=== PATIENT | male | born 1980 | race African-American/Black ===

== ENCOUNTER 2017-07-06 23:53 | Emergency (ER) | payer OTHER, MEDICAID ==
[2017-07-07 00:13] VITALS: BP 186/97; BMI 44.3
--- NOTE | 2017-07-07 00:33 | DR.GENAD ---
HPI - PCP Primary Care Physician: NANO - Complaint/Symptoms Chief Complaint Doctors Comments: Patient admits to intermittent fever for three days. He denies vomiting or diarrhea. He has no history of cardiopulmonary disease Chief Complaint:: FEVER X 3 DAYS Self Treatment fo Chief Complaint: TYLENOL - Mode of Arrival Mode of Arrival: Ambulatory - Timing Onset of Chief Complaint: 07/04/17 PMH - PMH Past Medical History: Yes Past Medical History: Diabetes, Hypertension Past Surgical History: No - Family History History of Family Medical Conditions: Yes Family Medical History: Diabetes Mellitus, Hypertension Family Medical History Comment: FATHER - Social History Does patient currently use any type of tobacco product: No Have you used tobacco products in the last 12 months: No Type of Tobacco Use: None Does any household member use tobacco: No Alcohol Use: None Do you use any recreational Drugs:: No Lives With: Family Lives Where: Home - infectious screening In the last 2 months have you had wt loss of >10#?: NO Have you had fever, night sweats or hemotysis?: No Have you traveled outside the country in the last 6 months?: No Isolation: Standard ROS - Review of Systems Eyes: No Symptoms Reported ENTM: No Symptoms Reported Respiratoy: No Symptoms Reported Cardiovascular: No Symptoms Reported Gastrointestinal/Abdominal: No Symptoms Reported Genitourinary: No Symptoms Reported Neurological: No Symptoms Reported Musculoskeletal: No Symptoms Reported Integumentary: No Symptoms Reported Hematologic/Lymphatic: No Symptoms Reported Endocrine: No Symptoms Reported Psychiatric: No Symptoms Reported All Other Systems: Reviewed and Negative PE - Vital Signs Vitals: Temperature 99.6 F Pulse Rate 82 Respiratory Rate 16 Blood Pressure 186/97 O2 Sat by Pulse Oximetry 97 - General Limitations: No Limitations General Appearance: Alert, In No Apparent Distress - Head Head Exam: Normal Inspection, Atraumatic - Eyes Eye exam: Normal Appearance, PERRL, EOMI - ENT ENT Exam: Normal Exam External Ear Exam: Normal External Inspection TM/Canal Exam: Bilateral Normal Nose Exam: Normal Nose Exam Mouth Exam: Normal Inspection Throat Exam: Normal Inspection - Neck Neck Exam: Normal Inspection, Full ROM - Chest Chest Inspection: Normal Inspection - Respiratory Respiratory Exam: Normal Lung Sounds Bilat Respiratory Exam: Bilateral Clear to Auscultation - Cardiovascular Cardiovascular Exam: Regular Rate, Normal Rhythm - Abdominal Exam Abdominal Exam: Normal Inspection, Normal Bowel Sounds Abdominal Tenderness: negative: RUQ, RLQ, LUQ, LLQ, Epigastrium, Suprapubic, Diffuse, Mild, Moderate, Severe, Other - Extremities Extremities Exam: Normal Inspection, Full ROM - Back Back Exam: Normal Inspection, Full ROM - Neurologic Neurological Exam: Alert, Oriented X3, CN II-XII Intact - Psychiatric Psychiatric Exam: Normal Affect - Skin Skin Exam: Warm, Dry, Intact ROR - Labs Reviewed Laboratory Results Reviewed?: Yes (potassium low, positive strep) Result Diagrams: 07/07/17 00:43 07/07/17 00:43 Laboratory: WBC 5.6 X10^3/uL (3.6-10.0) 07/07/17 00:43 RBC 4.58 X10^6/uL (4.7-6.0) L 07/07/17 00:43 Hgb 12.9 g/dL (13.5-18.0) L 07/07/17 00:43 Hct 37.3 % (42.0-54.0) L 07/07/17 00:43 MCV 81.5 fL (80.0-100.0) 07/07/17 00:43 MCH 28.2 pg (27.0-34.0) 07/07/17 00:43 MCHC 34.6 g/dL (33.0-35.0) 07/07/17 00:43 RDW 12.7 % (11.6-16.5) 07/07/17 00:43 Plt Count 170 X10^3/uL (150.0-450.0) 07/07/17 00:43 MPV 7.7 fL (7.4-11.0) 07/07/17 00:43 Neut % 62.2 % (42.0-75.0) 07/07/17 00:43 Lymph % 26.4 % (21.0-51.0) 07/07/17 00:43 [place] % 9.6 % (0.0-13.0) 07/07/17 00:43 Eos % 1.2 % (0.9-2.9) 07/07/17 00:43 Baso % 0.6 % (0.2-1.0) 07/07/17 00:43 Neut # 3.5 x10^3/uL (2.2-4.8) 07/07/17 00:43 Lymph # 1.5 X10^3/uL (1.3-2.9) 07/07/17 00:43 [place] # 0.5 x10^3/uL (0.3-0.8) 07/07/17 00:43 Eos # 0.1 x10^3/uL (0.0-0.2) 07/07/17 00:43 Baso # 0.0 X10^3/uL (0.0-0.1) 07/07/17 00:43 Absolute Nucleated RBC 0.0 /100WBC 07/07/17 00:43 Sodium 138 mmol/L (136-145) 07/07/17 00:43 Corrected Sodium 142 mmol/L (136-145) 07/07/17 00:43 Potassium 3.3 mmol/L (3.5-5.1) L 07/07/17 00:43 Chloride 100 mmol/L (98-107) 07/07/17 00:43 Carbon Dioxide 30.3 mmol/L (21-32) 07/07/17 00:43 BUN 11 mg/dL (7-18) 07/07/17 00:43 Creatinine 1.35 mg/dL (0.70-1.30) H 07/07/17 00:43 Est GFR (MDRD) Af Amer > 60 (>60) 07/07/17 00:43 Est GFR (MDRD) Non-Af > 60 (>60) 07/07/17 00:43 Glucose 266 mg/dL (65-99) H 07/07/17 00:43 Calcium 8.5 mg/dL (8.5-10.1) 07/07/17 00:43 Streptococcus Screen Positive (NEGATIVE) A 07/07/17 00:43 - Diagnosis Discharge Problem: Hypokalemia, Strep pharyngitis - Discharge Plan Condition: Stable - Follow ups/Referrals Follow ups/Referrals: Jorge Saenz [Primary Care Provider] - 3 days - Instructions
[2017-07-07 00:57] LABS: BASOPHILS % (AUTO) 0.6 % (0.2-1.0); EOSINOPHILS # (AUTO) 0.1 x10^3/uL (0.0-0.2); EOSINOPHILS % (AUTO) 1.2 % (0.9-2.9); HEMATOCRIT 37.3 % (42.0-54.0); HEMOGLOBIN 12.9 g/dL (13.5-18.0); LYMPHOCYTES # (AUTO) 1.5 X10^3/uL (1.3-2.9); LYMPHOCYTES % (AUTO) 26.4 % (21.0-51.0); MEAN CORPUSCULAR HEMOGLOBIN 28.2 pg (27.0-34.0); MEAN CORPUSCULAR HGB CONC 34.6 g/dL (33.0-35.0); MEAN CORPUSCULAR VOLUME 81.5 fL (80.0-100.0); MEAN PLATELET VOLUME 7.7 fL (7.4-11.0); MONOCYTES # (AUTO) 0.5 x10^3/uL (0.3-0.8); MONOCYTES % (AUTO) 9.6 % (0.0-13.0); NEUTROPHILS # (AUTO) 3.5 x10^3/uL (2.2-4.8); NEUTROPHILS % (AUTO) 62.2 % (42.0-75.0); PLATELET COUNT 170 X10^3/uL (150.0-450.0); RED BLOOD COUNT 4.58 X10^6/uL (4.7-6.0); RED CELL DISTRIBUTION WIDTH 12.7 % (11.6-16.5); WHITE BLOOD COUNT 5.6 X10^3/uL (3.6-10.0)
[2017-07-07 00:59] LABS: BLOOD UREA NITROGEN 11 mg/dL (7-18); CALCIUM 8.5 mg/dL (8.5-10.1); CARBON DIOXIDE 30.3 mmol/L (21-32); CHLORIDE 100 mmol/L (98-107); COR NA(FOR HYPERGLY) 142 mmol/L (136-145); CREATININE 1.35 mg/dL (0.70-1.30); SODIUM 138 mmol/L (136-145); eGFR BLACK RACES > 60 (>60); eGFR NON BLACK RACES > 60 (>60)
[2017-07-07] MEDS ORDERED: K-DUR TAB 20 MEQ PO ONE ×2 (01:02→02:00)
[2017-07-07] MEDS ORDERED: BICILLIN L-A IM ONE ×2 (01:36→01:41)
== END 2017-07-07 02:08 | disposition home or self-care (01) ==
LOC: ER 23:53
DX: J02.0 Streptococcal pharyngitis (principal); E87.6 Hypokalemia
CPT/HCPCS: 36415; 80048; 85025; 87880; 96372; 99282; J0570

== ENCOUNTER 2017-07-08 21:29 | Emergency (ER) | payer OTHER, MEDICAID ==
[2017-07-08 21:52] VITALS: BP 149/80; BMI 44.3
[2017-07-08] MEDS ORDERED: DECADRON INJ IM ONE (23:01)
[2017-07-08] MEDS ORDERED: TORADOL 60 MG VIAL IM ONE (23:01)
[2017-07-08] MEDS ORDERED: TYLENOL 500 MG TAB EXTRA STRENGTH PO ONE ×2 (23:03→23:11)
--- NOTE | 2017-07-08 23:05 | DR.GENAD ---
HPI - PCP Primary Care Physician: NFD - HPI Comment HPI Comment: NOT CURRENTLY ON MEDICATION FOR STILLS DISEASE. - Complaint/Symptoms Chief Complaint Doctors Comments: FEVER, BODYACHES, WEAKNESS AND GENERALIZE JOINT PAIN. HAVE HISTORY OF ADULT STILL DISEASE AND RUN HIGH FEVER ALL THE TIME. TAKING MED FOR FEVER WITHOUT IMPROVEMENT. Chief Complaint:: PT STATES, "I'VE GOT A FEVER. HAVEN'T BEEN ABLE TO EAT FOR THE PAST 3 DAYS." Self Treatment fo Chief Complaint: TOOK MOTRIN. TAKEN ON AFTERNOON OF 07/08/17 AROUND 18:00. - Nurses notes reviewed Nurses Notes Review: Yes - Source History Provided: Patient - Mode of Arrival Mode of Arrival: Ambulatory - Timing Onset of Chief Complaint: 07/08/17 Came on: Gradually - Duration Duration: Constant Duration: Days - Severity Severity: Moderate PMH - PMH Past Medical History: Yes Past Medical History: CHF, Diabetes, Hypertension Past Surgical History: No - Family History History of Family Medical Conditions: Yes Family Medical History: Diabetes Mellitus, Hypertension - Social History Do you use any recreational Drugs:: No - infectious screening Have you traveled outside the country in the last 6 months?: No ROS - Review of Systems Constitutional: Fever, Weakness, Fatigue. negative: Chills Eyes: No Symptoms Reported. negative: Eye Pain, Discharge ENTM: No Symptoms Reported. negative: Ear Pain, Nose Discharge, Nose Congestion , Mouth Pain, Throat Pain Respiratoy: No Symptoms Reported, Short of Breath. negative: Productive Cough, Non-Productive Cough, Wheezing, Hemoptysis Cardiovascular: No Symptoms Reported Gastrointestinal/Abdominal: No Symptoms Reported Genitourinary: No Symptoms Reported. negative: Dysuria, Frequency, Hematuria Neurological: No Symptoms Reported, Headache, Weakness, Dizziness Musculoskeletal: No Symptoms Reported, Muscle Pain Integumentary: No Symptoms Reported Hematologic/Lymphatic: No Symptoms Reported Endocrine: No Symptoms Reported All Other Systems: Reviewed and Negative PE - Vital Signs Vitals: Temperature 99.5 F Pulse Rate 88 Respiratory Rate 20 Blood Pressure 149/80 O2 Sat by Pulse Oximetry 95 - General Limitations: No Limitations General Appearance: Alert - Head Head Exam: Normal Inspection - Eyes Eye exam: Normal Appearance, PERRL. negative: Scleral Icterus, Conjunctival Injection - ENT ENT Exam: Normal External Ear Exam External Ear Exam: Normal External Inspection TM/Canal Exam: Bilateral Normal Nose Exam: Normal Nose Exam Mouth Exam: Normal Inspection Throat Exam: Tonsillar Erythema. negative: Tonsillomegaly, Tonsillar Exudate - Neck Neck Exam: Normal Inspection - Chest Chest Inspection: Symmetric Chest Wall Rise - Respiratory Respiratory Exam: Normal Lung Sounds Bilat Respiratory Exam: Bilateral Clear to Auscultation - Cardiovascular Cardiovascular Exam: Regular Rate, Normal Rhythm, Normal Heart Sounds - Abdominal Exam Abdominal Exam: Normal Bowel Sounds, Soft. negative: Tenderness - Extremities Extremities Exam: Normal Inspection - Back Back Exam: Normal Inspection - Neurologic Neurological Exam: Alert, Oriented X3 - Psychiatric Psychiatric Exam: Normal Affect, Normal Mood - Skin Skin Exam: Normal Color MDM - Differential Diagnosis Differential Diagnosis: SORE THROT, PNEUMONIA, UTI, STILL DISEASE Course - Treatment Treatment: SEE ORDERS. - Education/Counseling Education/Counseling: Patient, Education Educated On: Treatment, Diagnosis, Needs for Follow Up ROR - Labs Reviewed Laboratory Results Reviewed?: Yes Result Diagrams: 07/08/17 23:05 07/08/17 23:05 Laboratory: WBC 5.3 X10^3/uL (3.6-10.0) 07/08/17 23:05 RBC 4.41 X10^6/uL (4.7-6.0) L 07/08/17 23:05 Hgb 12.5 g/dL (13.5-18.0) L 07/08/17 23:05 Hct 35.6 % (42.0-54.0) L 07/08/17 23:05 MCV 80.6 fL (80.0-100.0) 07/08/17 23:05 MCH 28.2 pg (27.0-34.0) 07/08/17 23:05 MCHC 35.0 g/dL (33.0-35.0) 07/08/17 23:05 RDW 12.7 % (11.6-16.5) 07/08/17 23:05 Plt Count 164 X10^3/uL (150.0-450.0) 07/08/17 23:05 MPV 8.0 fL (7.4-11.0) 07/08/17 23:05 Neut % 56.4 % (42.0-75.0) 07/08/17 23:05 Lymph % 27.4 % (21.0-51.0) 07/08/17 23:05 [place] % 15.2 % (0.0-13.0) H 07/08/17 23:05 Eos % 0.2 % (0.9-2.9) L 07/08/17 23:05 Baso % 0.8 % (0.2-1.0) 07/08/17 23:05 Neut # 3.0 x10^3/uL (2.2-4.8) 07/08/17 23:05 Lymph # 1.5 X10^3/uL (1.3-2.9) 07/08/17 23:05 [place] # 0.8 x10^3/uL (0.3-0.8) 07/08/17 23:05 Eos # 0.0 x10^3/uL (0.0-0.2) 07/08/17 23:05 Baso # 0.0 X10^3/uL (0.0-0.1) 07/08/17 23:05 Absolute Nucleated RBC 0.1 /100WBC 07/08/17 23:05 Sodium 133 mmol/L (136-145) L 07/08/17 23:05 Corrected Sodium 137 mmol/L (136-145) 07/08/17 23:05 Potassium 3.4 mmol/L (3.5-5.1) L 07/08/17 23:05 Chloride 99 mmol/L (98-107) 07/08/17 23:05 Carbon Dioxide 28.8 mmol/L (21-32) 07/08/17 23:05 BUN 14 mg/dL (7-18) 07/08/17 23:05 Creatinine 1.56 mg/dL (0.70-1.30) H 07/08/17 23:05 Est GFR (MDRD) Af Amer > 60 (>60) 07/08/17 23:05 Est GFR (MDRD) Non-Af 54 (>60) L 07/08/17 23:05 Glucose 256 mg/dL (65-99) H 07/08/17 23:05 Calcium 8.7 mg/dL (8.5-10.1) 07/08/17 23:05 Corrected Calcium 9.6 mg/dL (8.5-10.1) 07/08/17 23:05 Total Bilirubin 0.40 mg/dL (0.2-1.0) 07/08/17 23:05 AST 23 Units/L (15-37) 07/08/17 23:05 ALT 27 Units/L (12-78) 07/08/17 23:05 Alkaline Phosphatase 74 Units/L (46-116) 07/08/17 23:05 Total Protein 8.2 g/dL (6.4-8.2) 07/08/17 23:05 Albumin 2.9 g/dL (3.4-5.0) L 07/08/17 23:05 Globulin 5.3 g/dL (2.5-4.5) H 07/08/17 23:05 Albumin/Globulin Ratio 0.5 Ratio (1.1-2.1) L 07/08/17 23:05 Specimen Type Clean catch urine 07/08/17 23:13 Urine Color Dark yellow (YELLOW) 07/08/17 23:13 Urine Appearance Hazy (CLEAR) 07/08/17 23:13 Urine pH 5.0 (5.0 - 8.0) 07/08/17 23:13 Ur Specific [place] 1.020 (1.000-1.030) 07/08/17 23:13 Urine Protein 4+ (NEGATIVE) 07/08/17 23:13 Urine Glucose (UA) Negative (NEGATIVE) 07/08/17 23:13 Urine Ketones 1+ (NEGATIVE) 07/08/17 23:13 Urine Occult Blood 3+ (NEGATIVE) 07/08/17 23:13 Urine Nitrite Negative (NEGATIVE) 07/08/17 23:13 Urine Bilirubin 1+ (NEGATIVE) 07/08/17 23:13 Urine Urobilinogen 2+ (NORMAL) 07/08/17 23:13 Ur Leukocyte Esterase 1+ (NEGATIVE) 07/08/17 23:13 Urine RBC 5-10 /HPF (NEGATIVE) 07/08/17 23:13 Urine WBC 8-12 /HPF (NEGATIVE) 07/08/17 23:13 Ur Squamous Epith Cells Few /HPF (NEGATIVE) 07/08/17 23:13 Urine Bacteria 3+ /HPF (NEGATIVE) 07/08/17 23:13 Urine Mucus Few /HPF (NEGATIVE) 07/08/17 23:13 Ur Culture Indicated? Yes/culture set up 07/08/17 23:13 Streptococcus Screen Positive (NEGATIVE) A 07/08/17 23:08 - XRAY XRAY Interpreted by: Radiologist XRAY Findings: REPORT DISCUSS WITH PATIENT. - Diagnosis Discharge Problem: Strep pharyngitis UTI (urinary tract infection) Qualifiers: Urinary tract infection type: site unspecified Hematuria presence: without hematuria Qualified Code(s): N39.0 - Urinary tract infection, site not specified - Discharge Plan Disposition: HOME, SELF-CARE Condition: Stable Prescriptions: Ibuprofen [MOTRIN TAB 800 MG *] 800 mg PO Q8H PRN #20 tab PRN Reason: Pain/Inflammation Sulfamethoxazole-Trimethoprim [BACTRIM DS TAB 800/160 MG *] 1 tab PO BID #20 tab - Follow ups/Referrals Follow ups/Referrals: NFD,None [Primary Care Provider] - 3 days - Instructions Instructions: Strep Throat, [id number], Urinary Tract Infection, Adult, Easy- to-Read Additional Instructions: RETURN TO ED IF WORSE.
[2017-07-08] MEDS ORDERED: TORADOL 60 MG VIAL ONE (23:11)
[2017-07-08] MEDS ORDERED: DECADRON INJ ONE (23:12)
[2017-07-08 23:23] LABS: BASOPHILS % (AUTO) 0.8 % (0.2-1.0); EOSINOPHILS % (AUTO) 0.2 % (0.9-2.9); HEMATOCRIT 35.6 % (42.0-54.0); HEMOGLOBIN 12.5 g/dL (13.5-18.0); LYMPHOCYTES # (AUTO) 1.5 X10^3/uL (1.3-2.9); LYMPHOCYTES % (AUTO) 27.4 % (21.0-51.0); MEAN CORPUSCULAR HEMOGLOBIN 28.2 pg (27.0-34.0); MEAN CORPUSCULAR VOLUME 80.6 fL (80.0-100.0); MONOCYTES # (AUTO) 0.8 x10^3/uL (0.3-0.8); MONOCYTES % (AUTO) 15.2 % (0.0-13.0); NEUTROPHILS % (AUTO) 56.4 % (42.0-75.0); PLATELET COUNT 164 X10^3/uL (150.0-450.0); RED BLOOD COUNT 4.41 X10^6/uL (4.7-6.0); RED CELL DISTRIBUTION WIDTH 12.7 % (11.6-16.5); WHITE BLOOD COUNT 5.3 X10^3/uL (3.6-10.0)
[2017-07-08 23:27] LABS: BILIRUBIN,URINE 1+ (NEGATIVE); BLOOD/HEMOGLOBIN,URINE 3+ (NEGATIVE); GLUCOSE, URINE NEGATIVE (NEGATIVE); KETONES,URINE 1+ (NEGATIVE); LEUKOCYTE ESTERASE ,URINE 1+ (NEGATIVE); NITRITES,URINE NEGATIVE (NEGATIVE); PROTEIN,URINE 4+ (NEGATIVE); UROBILINOGEN,URINE 2+ (NORMAL)
[2017-07-08 23:32] LABS: ALANINE AMINOTRANSFERASE 27 Units/L (12-78); ALBUMIN 2.9 g/dL (3.4-5.0); ALKALINE PHOSPHATASE 74 Units/L (46-116); ASPARTATE AMINO TRANSFERASE 23 Units/L (15-37); BLOOD UREA NITROGEN 14 mg/dL (7-18); CALCIUM 8.7 mg/dL (8.5-10.1); CARBON DIOXIDE 28.8 mmol/L (21-32); CHLORIDE 99 mmol/L (98-107); COR CA(FOR HYPOALB) 9.6 mg/dL (8.5-10.1); COR NA(FOR HYPERGLY) 137 mmol/L (136-145); CREATININE 1.56 mg/dL (0.70-1.30); SODIUM 133 mmol/L (136-145); TOTAL PROTEIN 8.2 g/dL (6.4-8.2); eGFR BLACK RACES > 60 (>60); eGFR NON BLACK RACES 54 (>60)
--- NOTE | 2017-07-08 23:41 | RAD ---
EXAM: Chest X-ray INDICATION: Fever COMPARISION: No prior TECHNIQUE: PA, single view FINDINGS: The lungs are clear. The heart is moderately enlarged. No pleural effusion or pneumothorax. The media stinum is normal. The regional skeleton is intact. IMPRESSION: Cardiomegaly. The remainder of the examination appears unremarkable. Reported By:
[2017-07-09 00:03] LABS: APPEARANCE,URINE HAZY (CLEAR); BACTERIA,URINE 3+ /HPF (NEGATIVE); COLOR,URINE DARK YELLOW (YELLOW); MUCUS,URINE FEW /HPF (NEGATIVE); SQUAMOUS EPITHELIAL CELL,UR FEW /HPF (NEGATIVE)
[2017-07-09] MEDS ORDERED: BICILLIN L-A IM ONE ×2 (00:24→00:35)
== END 2017-07-09 00:53 | disposition home or self-care (01) ==
LOC: ER 21:55
DX: J02.0 Streptococcal pharyngitis (principal); N39.0 Urinary tract infection, site not specified; I51.7 Cardiomegaly
CPT/HCPCS: 36415; 71010; 80053; 81001; 85025; 87086; 87880; 96372; 99283; J0570; J1100; J1885

== ENCOUNTER 2019-12-17 13:34 | Observation (INO) ==
[2019-12-17] MEDS ORDERED: APRESOLINE INJ 20 MG VIAL IVP ONE (13:47)
[2019-12-17] MEDS ORDERED: PERCOCET TAB 5/325 MG PO PRN (13:49)
--- NOTE | 2019-12-17 13:53 | DR.H&P ---
H&P - History & Physical for Day of: H&P Date: 12/17/19 - Chief Complaint Chief Complaint: HIGH BLOOD PRESSURE, FAITGUE - History of Present Illness History of Present Illness: PT IS 39 [address] DIRECT ADMIT FROM DR MALDONADO OFFICE WITH HYPERTENSIVE URGENCY. BP 188/115 IN OFFICE, AFTER TAKING MORNING MEDS CORGE, ENTRESTO AND HYDRALAZINE. PT WAS GIVEN CATAPRES .1 WITH BP 1 HR POST 178/110. PT CO INCREASED FATIGUE, NO ENERGY, DEPRESSED. PT LAST EF 01/26 <45%. PT REPORTS PAIN IN LOWER BACK AND SWELLING IN BOTH LEGS. PT HAS PMH OF CHF, STILLS DISEASE, DM, HTN, MO. PT ADMITTED FOR TREATMENT OF ACUTE ILLNESS. - Past Medical History Past Medical History: CHF, Diabetes, Hypertension - Family History Family Medical History: Diabetes Mellitus, Hypertension - Social History Does patient currently use any type of tobacco product: No Have you used tobacco products in the last 12 months: No Type of Tobacco Use: None Does any household member use tobacco: No Alcohol Use: None Drug Use: None Risks, benefits, and alternatives of opioids discussed: No Prescription drug monitoring program results: PDMP reviewed and no concerns identified - Medications Home Medications: No Known Drug Allergies Allergy (Verified 07/07/17 01:03) - Review of Systems Constitutional: Weakness, Malaise Eyes: No Symptoms Reported ENT: No Symptoms Reported Respiratory: Shortness of Breath Cardiovascular: Edema Gastrointestinal: No Symptoms Reported, Vomiting Musculoskeletal: No Symptoms Reported Skin: No Symptoms Reported Neurological: Other (HEADACHES) - Physical Exam Vital Signs: Blood Pressure 149/80 Oriented: Normal Eyes: Normal Ear: Normal Throat: Normal Respiratory: RLL Diminished, LLL Diminished Cardiovascular: Murmur, Edema Auscultation: Bowel Sounds: Normal Palpation: Normal Tenderness: Normal Skin: Normal Musculoskeletal: Back:Thoracic, Back:Lumbar Mood Description: Depressed Affect: Depressed Speech Pattern: Clear, Appropriate - Assessment/Plan (1) Hypertensive urgency Status: Acute Plan: ADMIT, EKG AND CE ON ADMISSION. BP CONTROL, IV HYDRALAZINE PRN BP >180/90. VERIFY HOME MEDICATION, CXR ON ADMISSION. STRICT I& OS, CTA RENAL ARTERIES. ECHO, SUPPLEMENTAL O2 (2) CHF (congestive heart failure) Status: Acute (3) Diabetes Status: Acute (4) Lumbar arthropathy Status: Acute - Allergies Allergies/Adverse Reactions: Allergies Allergy/AdvReac Type Severity Reaction Status Date / Time No Known Drug Allergies Allergy Verified 07/07/17 01:03
[2019-12-17] MEDS ORDERED: NS 1000 ML 1,000 ML IV SCH (14:00)
--- NOTE | 2019-12-17 16:20 | RAD ---
HISTORYCHF, DRUAN, LE EDEMA malignant hypertensionSTUDYCHEST, PA/LAT [id number]/29/2017.FINDINGSThe trachea is midline. The cardiac silhouette is again enlarged. No evidence of CHF is seen.. The lungs are clear without focal infiltrate or effusion. The bony thorax is unremarkable.IMPRESSIONCardiomegaly without CHF or infiltrate.Electronically signed by: TIO VALVERDE (Dec 17, 2019 16:19:07)
[2019-12-17] MEDS: APRESOLINE INJ 20 MG VIAL IVP NR (16:29)
[2019-12-17 16:40] LABS: BASOPHILS % (AUTO) 0.6 % (0.2-1.0); EOSINOPHILS # (AUTO) 0.2 x10^3/uL (0.0-0.2); EOSINOPHILS % (AUTO) 3.7 % (0.9-2.9); HEMATOCRIT 37.8 % (42.0-54.0); HEMOGLOBIN 12.9 g/dL (13.5-18.0); LYMPHOCYTES # (AUTO) 2.9 X10^3/uL (1.3-2.9); LYMPHOCYTES % (AUTO) 47.5 % (21.0-51.0); MEAN CORPUSCULAR HEMOGLOBIN 27.9 pg (27.0-34.0); MEAN CORPUSCULAR HGB CONC 34.2 g/dL (33.0-35.0); MEAN CORPUSCULAR VOLUME 81.5 fL (80.0-100.0); MEAN PLATELET VOLUME 7.5 fL (7.4-11.0); MONOCYTES # (AUTO) 0.4 x10^3/uL (0.3-0.8); MONOCYTES % (AUTO) 6.6 % (0.0-13.0); NEUTROPHILS # (AUTO) 2.6 x10^3/uL (2.2-4.8); NEUTROPHILS % (AUTO) 41.6 % (42.0-75.0); PLATELET COUNT 224 X10^3/uL (150.0-450.0); RED BLOOD COUNT 4.63 X10^6/uL (4.7-6.0); WHITE BLOOD COUNT 6.2 X10^3/uL (3.6-10.0)
[2019-12-17 16:57] LABS: BLOOD UREA NITROGEN 16 mg/dL (7-18); CALCIUM 9.3 mg/dL (8.5-10.1); CARBON DIOXIDE 31.4 mmol/L (21-32); CHLORIDE 103 mmol/L (98-107); COR NA(FOR HYPERGLY) 142 mmol/L (136-145); CREATININE 1.16 mg/dL (0.70-1.30); SODIUM 140 mmol/L (136-145); TROPONIN I 0.06 ng/mL (0-1.5); eGFR NON BLACK RACES > 60 (>60)
[2019-12-17 17:03] LABS: ALANINE AMINOTRANSFERASE 18 Units/L (12-78); ALBUMIN 3.2 g/dL (3.4-5.0); ALKALINE PHOSPHATASE 90 Units/L (46-116); ASPARTATE AMINO TRANSFERASE 14 Units/L (15-37); CKMB % 1.4 % (<4); COR CA(FOR HYPOALB) 9.9 mg/dL (8.5-10.1); CREATINE KINASE 70 Units/L (39-308); FREE T4 (FREE THYROXINE) 1.08 ng/dL (0.76-1.46); TOTAL PROTEIN 7.5 g/dL (6.4-8.2); TSH (3RD GENERATION) 1.234 uIU/mL (0.358-3.74)
[2019-12-17 17:36] VITALS: BMI 42.7
[2019-12-17 18:07] LABS: BILIRUBIN,URINE NEGATIVE (NEGATIVE); BLOOD/HEMOGLOBIN,URINE NEGATIVE (NEGATIVE); GLUCOSE, URINE NEGATIVE (NEGATIVE); KETONES,URINE NEGATIVE (NEGATIVE); LEUKOCYTE ESTERASE ,URINE NEGATIVE (NEGATIVE); NITRITES,URINE NEGATIVE (NEGATIVE); PROTEIN,URINE 3+ (NEGATIVE); UROBILINOGEN,URINE 3+ (NORMAL)
[2019-12-17 18:08] LABS: APPEARANCE,URINE SLIGHTLY HAZY (CLEAR); COLOR,URINE YELLOW (YELLOW)
[2019-12-17 18:17] LABS: BACTERIA,URINE TRACE /HPF (NEGATIVE); RBC,URINE 0-2 /HPF (0-3); SQUAMOUS EPITHELIAL CELL,UR FEW /HPF (NEGATIVE)
[2019-12-17] MEDS ORDERED: SNACK - Diabetic Appropriate PO SCH (20:00)
[2019-12-17] MEDS: HumuLIN R SUBCUT PRN (20:11)
[2019-12-18] MEDS: HumuLIN R SUBCUT PRN (05:53)
[2019-12-18 05:56] LABS: BASOPHILS % (AUTO) 0.6 % (0.2-1.0); EOSINOPHILS # (AUTO) 0.2 x10^3/uL (0.0-0.2); EOSINOPHILS % (AUTO) 3.9 % (0.9-2.9); HEMATOCRIT 36.2 % (42.0-54.0); HEMOGLOBIN 12.7 g/dL (13.5-18.0); LYMPHOCYTES # (AUTO) 2.6 X10^3/uL (1.3-2.9); MEAN CORPUSCULAR HEMOGLOBIN 28.7 pg (27.0-34.0); MEAN CORPUSCULAR HGB CONC 35.1 g/dL (33.0-35.0); MEAN CORPUSCULAR VOLUME 81.8 fL (80.0-100.0); MEAN PLATELET VOLUME 8.2 fL (7.4-11.0); MONOCYTES # (AUTO) 0.5 x10^3/uL (0.3-0.8); MONOCYTES % (AUTO) 7.9 % (0.0-13.0); NEUTROPHILS # (AUTO) 2.9 x10^3/uL (2.2-4.8); NEUTROPHILS % (AUTO) 46.6 % (42.0-75.0); PLATELET COUNT 190 X10^3/uL (150.0-450.0); RED BLOOD COUNT 4.43 X10^6/uL (4.7-6.0); RED CELL DISTRIBUTION WIDTH 13.7 % (11.6-16.5); WHITE BLOOD COUNT 6.3 X10^3/uL (3.6-10.0)
[2019-12-18 06:13] LABS: ALANINE AMINOTRANSFERASE 17 Units/L (12-78); ALBUMIN 2.9 g/dL (3.4-5.0); ALKALINE PHOSPHATASE 91 Units/L (46-116); ASPARTATE AMINO TRANSFERASE 14 Units/L (15-37); BLOOD UREA NITROGEN 16 mg/dL (7-18); CALCIUM 8.7 mg/dL (8.5-10.1); CARBON DIOXIDE 28.6 mmol/L (21-32); CHLORIDE 104 mmol/L (98-107); CHOL/HDL RATIO 6.1 (0.0-5.0); CHOLESTEROL 164 mg/dL (0-200); COR CA(FOR HYPOALB) 9.6 mg/dL (8.5-10.1); COR NA(FOR HYPERGLY) 143 mmol/L (136-145); HDL CHOLESTEROL 27 mg/dL (40-60); SODIUM 139 mmol/L (136-145); TOTAL PROTEIN 7.2 g/dL (6.4-8.2); TRIGLYCERIDES 110 mg/dL (0-150); eGFR NON BLACK RACES > 60 (>60)
[2019-12-18] MEDS ORDERED: MAGNESIUM SULFATE 1 GRAM/100 mL PREMIX 1 GM/100 ML BAG IV PRN (06:28)
[2019-12-18] MEDS ORDERED: MICRO K EXTEN CAP 10 MEQ PO PRN ×2 (06:28→08:13)
[2019-12-18] MEDS ORDERED: K-RIDER 10 MEQ/NS 100 ML 10 MEQ/100 ML BAG IV PRN ×2 (06:28→08:13)
[2019-12-18] MEDS ORDERED: POTASSIUM CHLORIDE LIQ 20 MEQ UDC PO PRN ×2 (06:28→08:13)
[2019-12-18] MEDS ORDERED: KLOR-CON PO PRN ×2 (06:28→08:13)
[2019-12-18] MEDS ORDERED: POTASSIUM CHL 40 MEQ/NS 0.45% 500 ML IV PRN ×2 (06:28→08:13)
[2019-12-18] MEDS ORDERED: POTASSIUM CHL 60 MEQ/NS 0.45% 500 ML IV PRN ×2 (06:28→08:13)
[2019-12-18] MEDS ORDERED: K-DUR TAB 20 MEQ PO PRN ×2 (06:28→08:13)
[2019-12-18] MEDS ORDERED: APRESOLINE INJ 20 MG VIAL IVP ONE (08:44)
[2019-12-18] MEDS ORDERED: LEVEMIR SC ONE (08:49)
[2019-12-18] MEDS ORDERED: COREG TAB 25 MG PO SCH (09:00)
[2019-12-18] MEDS ORDERED: PATIENT'S HOME MEDICATION (Sacubitril-Valsartan [Entresto] 1 TAB) PO SCH (09:00)
[2019-12-18] MEDS ORDERED: APRESOLINE TAB 25 MG PO SCH (09:00)
[2019-12-18] MEDS ORDERED: LEVEMIR SC NR (11:00)
[2019-12-18] MEDS ORDERED: APRESOLINE INJ 20 MG VIAL IVP NR (11:00)
--- NOTE | 2019-12-18 12:01 | CT ---
HISTORYMalignant hypertensionSTUDYCTA renal arteries with and without contrastTechnique: Axial pre and postcontrast images with coronal, sagittal, and 3 dimensional maximum intensity projection images obtained and evaluated.COMPARISONNoneFINDINGSVascular findings: The abdominal aorta is normal in caliber and without evidence for dissection. The origins and visualized portions of the celiac axis SMA and ROB are within normal limits. The origins and visualized portions of the renal arteries are normal in without evidence for stenoses. The proximal common iliac arteries are normal.Nonvascular findings: The lung bases are clear. The heart is enlarged. The liver, spleen, adrenal glands, and pancreas are within normal limits. No opaque stones are present within the gallbladder. The kidneys are unobstructed and without stones or masses. No enlarged intraperitoneal or retroperitoneal lymphadenopathy is identified. However, there are multiple but nonenlarged periaortic lymph nodes present. There are of unknown etiology and significance at this time. If clinically indicated PET-CT would be of further diagnostic value. At the least CT follow-up is recommended. No lytic or blastic skeletal lesions of significance are identified.IMPRESSIONNormal appearing renal arteries bilaterally without evidence for stenosesNo vascular abnormality identifiedMultiple but not significantly enlarged periaortic lymph nodes of uncertain etiology and significance at this time. PET-CT would be of further diagnostic value in excluding malignancy. At the least CT follow-up is recommended.Electronically signed by: SARA MA (Dec 18, 2019 12:00:14)
[2019-12-18 12:14] VITALS: BP 139/90
[2019-12-18] MEDS ORDERED: SNACK - Diabetic Appropriate PO SCH (20:00)
== END 2019-12-18 15:25 | disposition home or self-care (01) ==
LOC: MED/SURG
PROVIDERS: ADMIT Internal Medicine; ATTEND Internal Medicine
DX: R60.0 Localized edema; I50.9 Heart failure, unspecified; I34.0 Nonrheumatic mitral (valve) insufficiency; M51.36 Other intervertebral disc degeneration, lumbar region; E11.65 Type 2 diabetes mellitus with hyperglycemia; M54.5 Low back pain; R94.31 Abnormal electrocardiogram [ECG] [EKG]; I11.0 Hypertensive heart disease with heart failure; I16.0 Hypertensive urgency; M06.1 Adult-onset Still's disease; E66.01 Morbid (severe) obesity due to excess calories; I42.8 Other cardiomyopathies; R59.0 Localized enlarged lymph nodes
CPT/HCPCS: 36415; 71020; 71046; 74174; 80053; 80061; 81001; 82550; 82553; 83735; 83880; 84439; 84443; 84484; 85025; 93005; 93306; 96360; 96361; 96372; A4222; G0378; J0360; J1815; J7030

== ENCOUNTER 2020-08-14 12:39 | Inpatient (IN) ==
--- NOTE | 2020-08-14 15:02 | RAD ---
HISTORYPNEUMONIA, COUGH, SOB, PT. STATES HE WAS PREVIOUSLY ON VENTSTUDYCHEST, 1 [id number]/2020TECHNIQUEAP view of the chestFINDINGSCardiac silhouette is enlarged. Lungs are clear. No pleural effusion or pneumothorax within the field of view. Soft tissue attenuation limits evaluation.IMPRESSIONCardiomegaly without acute pulmonary process.Electronically signed by: Drew Tolbert (Aug 14, 2020 15:00:07)
[2020-08-14 16:00] LABS: BASOPHILS # (AUTO) 0.1 X10^3/uL (0.0-0.1); EOSINOPHILS # (AUTO) 0.1 x10^3/uL (0.0-0.2)
[2020-08-14] MEDS: NS 1000 ML 1,000 ML IV SCH (16:10)
[2020-08-14 16:27] LABS: HEMATOCRIT 32.8 % (42.0-54.0); HEMOGLOBIN 10.7 g/dL (13.5-18.0); LYMPHOCYTES # (AUTO) 1.5 X10^3/uL (1.3-2.9); LYMPHOCYTES % (AUTO) 22.2 % (21.0-51.0); MEAN CORPUSCULAR HEMOGLOBIN 26.5 pg (27.0-34.0); MEAN CORPUSCULAR HGB CONC 32.7 g/dL (33.0-35.0); MEAN CORPUSCULAR VOLUME 81.1 fL (80.0-100.0); MEAN PLATELET VOLUME 7.2 fL (7.4-11.0); MONOCYTES # (AUTO) 0.4 x10^3/uL (0.3-0.8); MONOCYTES % (AUTO) 6.2 % (0.0-13.0); NEUTROPHILS # (AUTO) 4.7 x10^3/uL (2.2-4.8); NEUTROPHILS % (AUTO) 68.6 % (42.0-75.0); PLATELET COUNT 198 X10^3/uL (150.0-450.0); RED BLOOD COUNT 4.04 X10^6/uL (4.7-6.0); RED CELL DISTRIBUTION WIDTH 14.2 % (11.6-16.5); WHITE BLOOD COUNT 6.9 X10^3/uL (3.6-10.0)
[2020-08-14 16:44] LABS: BLOOD UREA NITROGEN 11 mg/dL (7-18); CALCIUM 8.8 mg/dL (8.5-10.1); CARBON DIOXIDE 32.1 mmol/L (21-32); CHLORIDE 100 mmol/L (98-107); COR NA(FOR HYPERGLY) 141 mmol/L (136-145); CREATININE 1.42 mg/dL (0.70-1.30); SODIUM 137 mmol/L (136-145); TROPONIN I 0.02 ng/mL (0-1.5); eGFR NON BLACK RACES 59 (>60)
[2020-08-14 16:49] LABS: ALANINE AMINOTRANSFERASE 28 Units/L (12-78); ALBUMIN 2.6 g/dL (3.4-5.0); ALKALINE PHOSPHATASE 116 Units/L (46-116); ASPARTATE AMINO TRANSFERASE 21 Units/L (15-37); CKMB % 2.3 % (<4); COR CA(FOR HYPOALB) 9.9 mg/dL (8.5-10.1); CREATINE KINASE 44 Units/L (39-308); CREATINE KINASE MB < 1.0 ng/mL (0-4.0); MAGNESIUM 1.7 mg/dL (1.7-2.9); TOTAL PROTEIN 8.1 g/dL (6.4-8.2)
[2020-08-14] MEDS ORDERED: ZOFRAN INJ 4 MG VIAL IVP PRN (16:52)
[2020-08-14 16:59] LABS: BILIRUBIN,URINE NEGATIVE (NEGATIVE); BLOOD/HEMOGLOBIN,URINE 1+ (NEGATIVE); GLUCOSE, URINE NEGATIVE (NEGATIVE); KETONES,URINE NEGATIVE (NEGATIVE); LEUKOCYTE ESTERASE ,URINE NEGATIVE (NEGATIVE); NITRITES,URINE NEGATIVE (NEGATIVE); PROTEIN,URINE 4+ (NEGATIVE); UROBILINOGEN,URINE NORMAL (NORMAL)
--- NOTE | 2020-08-14 17:00 | DR.H&P ---
H&P - History & Physical for Day of: H&P Date: 08/14/20 - Chief Complaint Chief Complaint: SOB, COUGH, LOWER LEG SWELLING, VOMITING - History of Present Illness History of Present Illness: PT CO INCREASED SOB, COUGH AND GAGGING AND LOWER LEG SWELLING. PT HAS ACUTE PHARYNGITIS WITH LYMHADENTITIS AND TOOK A ROUND OF AUGMENTIN WITH IMPROVED PHARYNGITIS BUT CONTINUED WITH COUGH AND INCREASED SOB. PT STATES HE WAS COVID NEGATIVE IN ER ON 07/22. PT HAD PMH OF UNCONTROLLED DM AND NON ISCHEMIC CARDIOMYOPATHY. PT REPORTS HE HAS BEEN TAKING MEDICATION DIRECTED. PT REPORTS HE "CANNOT KEEP ANYTHING DOWN" AFTER HE EATS. PT WAS HYPONATREMIC ON CMP 08/01. PT ADMITTED FOR TREATMENT OF ACUTE ILLNESS. - Past Medical History Past Medical History: CHF, Coronary Artery Disease, Diabetes, Hypertension, Renal Disease - Past Surgical History Surgical History: Other - Family History Family Medical History: Diabetes Mellitus, Cancer, Hypertension - Social History Does patient currently use any type of tobacco product: No Have you used tobacco products in the last 12 months: No Type of Tobacco Use: None Does any household member use tobacco: No Alcohol Use: None Drug Use: None Risks, benefits, and alternatives of opioids discussed: No - Medications Home Medications: No Known Drug Allergies Allergy (Verified 08/01/20 12:44) - Review of Systems Constitutional: Chills, Malaise ENT: No Symptoms Reported Respiratory: Cough, SOB with Excertion Cardiovascular: Edema Gastrointestinal: Nausea, Vomiting Genitourinary: No Symptoms Reported Musculoskeletal: Back Pain Skin: No Symptoms Reported Neurological: Weakness - Physical Exam Vital Signs: Blood Pressure [Right Arm] 176/103 Blood Pressure [Left Arm] 139/90 Blood Pressure 143/86 Oriented: Normal Eyes: Normal Ear: Normal Nose: Normal Throat: Normal Respiratory: RML Diminished, RLL Diminished, LML Diminished, LLL Diminished Cardiovascular: Normal, Edema : Normal Auscultation: Bowel Sounds: Normal Tenderness: Normal Skin: Normal Musculoskeletal: Normal Psychiatric: Anxiety Affect: Anxious Speech Pattern: Clear, Appropriate - Assessment/Plan (1) SOB (shortness of breath) Status: Acute Plan: ADMIT, CE ON ADMISSION. CXR, STRICT I&OS. EKG, OBTAIN LAST ECHO RESULTS, CONTINUE SSI. IV ATBX, BLOOD CULTURES, RESP CONSULT. D-DIMER, CONTINUE PO EL IQUIS (2) Acute bronchitis Status: Acute (3) Hypertensive urgency Status: Acute (4) CHF (congestive heart failure) Status: Acute (5) Diabetes Qualifiers: Diabetes mellitus type: type 2 Diabetes mellitus [facility] insulin use: without ad terminal makeup operator use Diabetes mellitus complication status: without complication Qualified Code(s): E11.9 - Type 2 diabetes mellitus without complications Status: Acute - Allergies Allergies/Adverse Reactions: Allergies Allergy/AdvReac Type Severity Reaction Status Date / Time No Known Drug Allergies Allergy Verified 08/01/20 12:44
[2020-08-14 17:08] LABS: AMORPHOUS SEDIMENT,UR 1+ /HPF (NEGATIVE); APPEARANCE,URINE CLEAR (CLEAR); BACTERIA,URINE TRACE /HPF (NEGATIVE); COLOR,URINE DARK YELLOW (YELLOW); SQUAMOUS EPITHELIAL CELL,UR FEW /HPF (NEGATIVE)
[2020-08-14] MEDS: DUONEB 0.5 MG/3 MG (3 mL) NEB SCH ×2 (17:55→21:26)
[2020-08-14 18:02] VITALS: BMI 40.7
[2020-08-14] MEDS: LASIX IVP SCH (18:15)
[2020-08-14] MEDS: PROTONIX INJ 40 MG VIAL IVP SCH ×2 (18:16→23:55)
[2020-08-14] MEDS: ZITHROMAX INJ 500 MG VIAL 500 MG in NS 250 ML IV 250 ML IV SCH (18:16)
[2020-08-14] MEDS: HumuLIN R SUBCUT PRN ×2 (18:17→23:57)
[2020-08-14] MEDS: SNACK - Diabetic Appropriate PO SCH (21:00)
[2020-08-14] MEDS: COREG TAB 25 MG PO SCH (21:30)
[2020-08-15] MEDS: DUONEB 0.5 MG/3 MG (3 mL) NEB SCH ×6 (00:15→21:05)
[2020-08-15] MEDS ORDERED: APRESOLINE TAB 25 MG ONE (00:41)
[2020-08-15] MEDS: APRESOLINE TAB 25 MG PO SCH ×3 (00:50→20:00)
[2020-08-15 05:28] LABS: BASOPHILS # (AUTO) 0.1 X10^3/uL (0.0-0.1); BASOPHILS % (AUTO) 0.8 % (0.2-1.0); EOSINOPHILS # (AUTO) 0.2 x10^3/uL (0.0-0.2); EOSINOPHILS % (AUTO) 1.9 % (0.9-2.9); HEMATOCRIT 29.2 % (42.0-54.0); HEMOGLOBIN 9.8 g/dL (13.5-18.0); LYMPHOCYTES # (AUTO) 2.1 X10^3/uL (1.3-2.9); LYMPHOCYTES % (AUTO) 25.7 % (21.0-51.0); MEAN CORPUSCULAR HGB CONC 33.6 g/dL (33.0-35.0); MEAN CORPUSCULAR VOLUME 80.4 fL (80.0-100.0); MEAN PLATELET VOLUME 7.7 fL (7.4-11.0); MONOCYTES # (AUTO) 0.5 x10^3/uL (0.3-0.8); MONOCYTES % (AUTO) 6.4 % (0.0-13.0); NEUTROPHILS # (AUTO) 5.3 x10^3/uL (2.2-4.8); NEUTROPHILS % (AUTO) 65.2 % (42.0-75.0); PLATELET COUNT 209 X10^3/uL (150.0-450.0); RED BLOOD COUNT 3.63 X10^6/uL (4.7-6.0); RED CELL DISTRIBUTION WIDTH 14.1 % (11.6-16.5); WHITE BLOOD COUNT 8.2 X10^3/uL (3.6-10.0)
[2020-08-15 05:39] LABS: ALANINE AMINOTRANSFERASE 25 Units/L (12-78); ALBUMIN 2.4 g/dL (3.4-5.0); ALKALINE PHOSPHATASE 99 Units/L (46-116); ASPARTATE AMINO TRANSFERASE 21 Units/L (15-37); BLOOD UREA NITROGEN 11 mg/dL (7-18); CALCIUM 8.8 mg/dL (8.5-10.1); CARBON DIOXIDE 30.8 mmol/L (21-32); CHLORIDE 101 mmol/L (98-107); COR CA(FOR HYPOALB) 10.1 mg/dL (8.5-10.1); COR NA(FOR HYPERGLY) 140 mmol/L (136-145); CREATININE 1.29 mg/dL (0.70-1.30); SODIUM 138 mmol/L (136-145); TOTAL PROTEIN 7.5 g/dL (6.4-8.2); eGFR NON BLACK RACES > 60 (>60)
[2020-08-15] MEDS: COREG TAB 25 MG PO SCH ×2 (09:15→20:00)
[2020-08-15] MEDS: ZITHROMAX INJ 500 MG VIAL 500 MG in NS 250 ML IV 250 ML IV SCH (09:16)
[2020-08-15] MEDS: PROTONIX INJ 40 MG VIAL IVP SCH ×2 (09:17→20:00)
[2020-08-15] MEDS: ROBITUSSIN DM PO PRN (09:17)
[2020-08-15] MEDS: LASIX IVP SCH ×2 (09:17→17:00)
[2020-08-15] MEDS: [UNRECOGNIZED DRUG - OTHER] SUBCUT SCH (09:18)
[2020-08-15] MEDS: INSULIN GLARGINE LIXISENATIDE SUBCUT SCH (09:18)
[2020-08-15] MEDS ORDERED: AFLURIA II4 or FLUARIX II4 IM ONE (10:00)
[2020-08-15] MEDS ORDERED: PREVNAR 13 IM ONE (10:00)
--- NOTE | 2020-08-15 11:19 | CT ---
HISTORYSOB, COUGH, ELEV D DIMERSTUDYCTA CHESTCOMPARISONNoneTECHNIQUEMultiple axial images of the chest were obtained from the thoracic inlet to the upper abdomen after the administration of IV contrast. 3D reconstructions utilizing axial MIPS imaging was performed and reviewed. Dose reduction techniques including Automated Exposure Control (AEC) and adjustment of mA and kV were utilized.FINDINGSNo pneumothorax or effusion. Faint bilateral ground-glass opacities.No evidence of pulmonary embolism.Moderate cardiomegaly. No evidence of pericardial disease. No mediastinal or hilar adenopathy.No acute osseous abnormality.Limited visualized portions of the upper abdomen demonstrate no significant abnormality.IMPRESSIONNo evidence of pulmonary embolism.Scattered ground-glass opacities in the bilateral lungs concerning for pneumonia.Electronically signed by: SARA MA (Aug 15, 2020 11:18:26)
[2020-08-15] MEDS: HumuLIN R SUBCUT PRN ×3 (11:33→20:14)
[2020-08-15] MEDS: SNACK - Diabetic Appropriate PO SCH (19:59)
[2020-08-16] MEDS: DUONEB 0.5 MG/3 MG (3 mL) NEB SCH ×6 (00:52→21:06)
[2020-08-16] MEDS: HumuLIN R SUBCUT PRN ×4 (05:58→20:36)
[2020-08-16 06:08] LABS: BASOPHILS % (AUTO) 0.6 % (0.2-1.0); EOSINOPHILS # (AUTO) 0.1 x10^3/uL (0.0-0.2); EOSINOPHILS % (AUTO) 1.8 % (0.9-2.9); HEMATOCRIT 31.1 % (42.0-54.0); HEMOGLOBIN 10.4 g/dL (13.5-18.0); LYMPHOCYTES # (AUTO) 1.7 X10^3/uL (1.3-2.9); LYMPHOCYTES % (AUTO) 25.6 % (21.0-51.0); MEAN CORPUSCULAR HEMOGLOBIN 26.8 pg (27.0-34.0); MEAN CORPUSCULAR HGB CONC 33.5 g/dL (33.0-35.0); MEAN CORPUSCULAR VOLUME 80.1 fL (80.0-100.0); MEAN PLATELET VOLUME 7.6 fL (7.4-11.0); MONOCYTES # (AUTO) 0.4 x10^3/uL (0.3-0.8); MONOCYTES % (AUTO) 6.5 % (0.0-13.0); NEUTROPHILS # (AUTO) 4.3 x10^3/uL (2.2-4.8); NEUTROPHILS % (AUTO) 65.5 % (42.0-75.0); PLATELET COUNT 203 X10^3/uL (150.0-450.0); RED BLOOD COUNT 3.89 X10^6/uL (4.7-6.0); RED CELL DISTRIBUTION WIDTH 14.2 % (11.6-16.5); WHITE BLOOD COUNT 6.6 X10^3/uL (3.6-10.0)
[2020-08-16 06:19] LABS: ALANINE AMINOTRANSFERASE 25 Units/L (12-78); ALBUMIN 2.5 g/dL (3.4-5.0); ALKALINE PHOSPHATASE 99 Units/L (46-116); ASPARTATE AMINO TRANSFERASE 17 Units/L (15-37); BLOOD UREA NITROGEN 14 mg/dL (7-18); CALCIUM 8.7 mg/dL (8.5-10.1); CARBON DIOXIDE 30.4 mmol/L (21-32); CHLORIDE 103 mmol/L (98-107); COR CA(FOR HYPOALB) 9.9 mg/dL (8.5-10.1); COR NA(FOR HYPERGLY) 144 mmol/L (136-145); CREATININE 1.34 mg/dL (0.70-1.30); SODIUM 141 mmol/L (136-145); TOTAL PROTEIN 7.8 g/dL (6.4-8.2); eGFR NON BLACK RACES > 60 (>60)
[2020-08-16] MEDS ORDERED: ZITHROMAX INJ 500 MG VIAL 250 MG in NS 250 ML IV 250 ML IV SCH (09:00)
[2020-08-16] MEDS ORDERED: MICRO K EXTEN CAP 10 MEQ PO PRN (09:06)
[2020-08-16] MEDS ORDERED: POTASSIUM CHLORIDE LIQ 20 MEQ UDC PO PRN (09:06)
[2020-08-16] MEDS ORDERED: K-DUR TAB 20 MEQ PO PRN (09:06)
[2020-08-16] MEDS ORDERED: KLOR-CON PO PRN (09:06)
[2020-08-16] MEDS ORDERED: POTASSIUM CHL 40 MEQ/NS 0.45% 500 ML IV PRN (09:06)
[2020-08-16] MEDS ORDERED: POTASSIUM CHL 60 MEQ/NS 0.45% 500 ML IV PRN (09:06)
[2020-08-16] MEDS ORDERED: K-RIDER 10 MEQ/NS 100 ML 10 MEQ/100 ML BAG IV PRN (09:06)
[2020-08-16] MEDS: APRESOLINE TAB 25 MG PO SCH ×2 (09:51→20:35)
[2020-08-16] MEDS: COREG TAB 25 MG PO SCH ×2 (09:51→20:35)
[2020-08-16] MEDS: PROTONIX INJ 40 MG VIAL IVP SCH ×2 (09:52→20:36)
[2020-08-16] MEDS: LASIX IVP SCH ×2 (09:54→17:14)
[2020-08-16] MEDS ORDERED: LASIX ONE ×2 (09:57→17:07)
[2020-08-16] MEDS: [UNRECOGNIZED DRUG - OTHER] SUBCUT SCH (10:00)
[2020-08-16] MEDS: INSULIN GLARGINE LIXISENATIDE SUBCUT SCH (10:00)
--- NOTE | 2020-08-16 10:22 | W.DIS.FURT ---
Summary of Discharge Admission Diagnosis Patient Problems (Updated 08/14/20 @ 17:03 by BERENICE HADLEY) Hypertensive urgency (Acute) I16.0 CHF (congestive heart failure) (Acute) I50.9 Diabetes (Acute) E11.9 SOB (shortness of breath) (Acute) R06.02 Acute bronchitis (Acute) J20.9 Vital Signs: Vital Signs (72 hours) 08/14/20 16:00 08/14/20 17:00 08/14/20 17:56 Temperature 97.3 F L Pulse Rate 80 Pulse Rate [Left Brachial] 86 Respiratory Rate 20 Blood Pressure [Left Arm] 173/103 166/88 Blood Pressure [Right Arm] O2 Sat by Pulse Oximetry 97 97 08/14/20 20:00 08/14/20 21:26 08/15/20 00:00 Temperature 98.4 F 99.0 F Pulse Rate 92 H Pulse Rate [Left Brachial] 94 H 86 Respiratory Rate 20 20 Blood Pressure [Left Arm] 145/90 Blood Pressure [Right Arm] 167/105 O2 Sat by Pulse Oximetry 94 L 93 L 97 08/15/20 04:00 08/15/20 08:00 08/15/20 09:00 Temperature 97.9 F 98.8 F Pulse Rate 90 Pulse Rate [Left Brachial] 80 80 Respiratory Rate 20 20 Blood Pressure [Left Arm] Blood Pressure [Right Arm] 188/100 130/84 O2 Sat by Pulse Oximetry 96 94 L 95 08/15/20 12:00 08/15/20 16:00 08/15/20 20:00 Temperature 97.7 F 98.3 F 97.3 F L Pulse Rate Pulse Rate [Left Brachial] 80 82 89 Respiratory Rate 20 20 20 Blood Pressure [Left Arm] Blood Pressure [Right Arm] 157/93 170/96 190/100 O2 Sat by Pulse Oximetry 98 96 97 08/15/20 21:05 08/16/20 00:00 08/16/20 04:00 Temperature 97.5 F L 97.6 F Pulse Rate 88 Pulse Rate [Left Brachial] 80 81 Respiratory Rate 20 18 Blood Pressure [Left Arm] Blood Pressure [Right Arm] 170/81 182/91 O2 Sat by Pulse Oximetry 96 96 98 08/16/20 08:00 08/16/20 08:43 Temperature 99.1 F Pulse Rate 82 Pulse Rate [Left Brachial] 83 Respiratory Rate 20 Blood Pressure [Left Arm] Blood Pressure [Right Arm] 155/98 O2 Sat by Pulse Oximetry 98 95 Labs: Laboratory Last Values WBC 6.6 X10^3/uL (3.6-10.0) 08/16/20 05:21 RBC 3.89 X10^6/uL (4.7-6.0) L 08/16/20 05:21 Hgb 10.4 g/dL (13.5-18.0) L 08/16/20 05:21 Hct 31.1 % (42.0-54.0) L 08/16/20 05:21 MCV 80.1 fL (80.0-100.0) 08/16/20 05:21 MCH 26.8 pg (27.0-34.0) L 08/16/20 05:21 MCHC 33.5 g/dL (33.0-35.0) 08/16/20 05:21 RDW 14.2 % (11.6-16.5) 08/16/20 05:21 Plt Count 203 X10^3/uL (150.0-450.0) 08/16/20 05:21 MPV 7.6 fL (7.4-11.0) 08/16/20 05:21 Neut % (Auto) 65.5 % (42.0-75.0) 08/16/20 05:21 Lymph % (Auto) 25.6 % (21.0-51.0) 08/16/20 05:21 [place] % (Auto) 6.5 % (0.0-13.0) 08/16/20 05:21 Eos % (Auto) 1.8 % (0.9-2.9) 08/16/20 05:21 Baso % (Auto) 0.6 % (0.2-1.0) 08/16/20 05:21 Neut # (Auto) 4.3 x10^3/uL (2.2-4.8) 08/16/20 05:21 Lymph # (Auto) 1.7 X10^3/uL (1.3-2.9) 08/16/20 05:21 [place] # (Auto) 0.4 x10^3/uL (0.3-0.8) 08/16/20 05:21 Eos # (Auto) 0.1 x10^3/uL (0.0-0.2) 08/16/20 05:21 Baso # (Auto) 0.0 X10^3/uL (0.0-0.1) 08/16/20 05:21 Absolute Nucleated RBC 0.1 /100WBC 08/16/20 05:21 D-Dimer 1.41 ug/ml (0.0-0.57) H* 08/14/20 16:17 Sodium 141 mmol/L (136-145) 08/16/20 05:21 Corrected Sodium 144 mmol/L (136-145) 08/16/20 05:21 Potassium 3.6 mmol/L (3.5-5.1) 08/16/20 05:21 Chloride 103 mmol/L (98-107) 08/16/20 05:21 Carbon Dioxide 30.4 mmol/L (21-32) 08/16/20 05:21 BUN 14 mg/dL (7-18) 08/16/20 05:21 Creatinine 1.34 mg/dL (0.70-1.30) H 08/16/20 05:21 Est GFR (MDRD) Af Amer > 60 (>60) 08/16/20 05:21 Est GFR (MDRD) Non-Af > 60 (>60) 08/16/20 05:21 Glucose 221 mg/dL (65-99) H 08/16/20 05:21 POC Glucose (mg/dL) 196 mg/dL (65-99) H 08/16/20 05:52 Calcium 8.7 mg/dL (8.5-10.1) 08/16/20 05:21 Corrected Calcium 9.9 mg/dL (8.5-10.1) 08/16/20 05:21 Magnesium 1.9 mg/dL (1.7-2.9) 08/16/20 05:21 Iron 111 ug/dL (50-175) 08/15/20 12:46 Transferrin 247 mg/dL (202-364) 08/15/20 12:46 Ferritin 102 ng/mL (26-388) 08/15/20 12:46 Total Bilirubin 0.40 mg/dL (0.2-1.0) 08/16/20 05:21 AST 17 Units/L (15-37) 08/16/20 05:21 ALT 25 Units/L (12-78) 08/16/20 05:21 Alkaline Phosphatase 99 Units/L (46-116) 08/16/20 05:21 Creatine Kinase 44 Units/L (39-308) 08/14/20 16:17 CK-MB (CK-2) < 1.0 ng/mL (0-4.0) 08/14/20 16:17 CK/CKMB % Calc 2.3 % (<4) 08/14/20 16:17 Troponin I 0.02 ng/mL (0-1.5) 08/14/20 16:17 Total Protein 7.8 g/dL (6.4-8.2) 08/16/20 05:21 Albumin 2.5 g/dL (3.4-5.0) L 08/16/20 05:21 Globulin 5.3 g/dL (2.5-4.5) H 08/16/20 05:21 Albumin/Globulin Ratio 0.5 Ratio (1.1-2.1) L 08/16/20 05:21 Vitamin B12 887 pg/mL (193-986) 08/15/20 12:46 Folate 16.0 ng/mL (>8.6) 08/15/20 12:46 Specimen Type Clean catch urine 08/14/20 16:45 Urine Color Dark yellow (YELLOW) 08/14/20 16:45 Urine Appearance Clear (CLEAR) 08/14/20 16:45 Urine pH 5.0 (5.0 - 8.0) 08/14/20 16:45 Ur Specific [place] 1.020 (1.000-1.030) 08/14/20 16:45 Urine Protein 4+ (NEGATIVE) 08/14/20 16:45 Urine Glucose (UA) Negative (NEGATIVE) 08/14/20 16:45 Urine Ketones Negative (NEGATIVE) 08/14/20 16:45 Urine Occult Blood 1+ (NEGATIVE) 08/14/20 16:45 Urine Nitrite Negative (NEGATIVE) 08/14/20 16:45 Urine Bilirubin Negative (NEGATIVE) 08/14/20 16:45 Urine Urobilinogen Normal (NORMAL) 08/14/20 16:45 Ur Leukocyte Esterase Negative (NEGATIVE) 08/14/20 16:45 Urine RBC 5-10 /HPF (0-3) A 08/14/20 16:45 Urine WBC None seen /HPF (0-5) 08/14/20 16:45 Ur Squamous Epith Cells Few /HPF (NEGATIVE) 08/14/20 16:45 Amorphous Sediment 1+ /HPF (NEGATIVE) 08/14/20 16:45 Urine Bacteria Trace /HPF (NEGATIVE) 08/14/20 16:45 Ur Culture Indicated? No/not indicated 08/14/20 16:45 Stool Description 15g brn,semiformed 08/16/20 09:17 Stl Occult Blood (IFOB) Negative (NEGATIVE) 08/16/20 09:17 SARS-CoV-2 (PCR) Negative (NEGATIVE) 08/14/20 18:25 Reason For Visit: HEART FAILURE BRONCHITIS EDEMA Discharge Diagnosis All Active Problems (Updated 08/14/20 @ 17:03 by BERENICE HADLEY) Hypokalemia (Acute) Strep pharyngitis (Acute) UTI (urinary tract infection) (Acute) Hypertensive urgency (Acute) CHF (congestive heart failure) (Acute) Diabetes (Acute) Lumbar arthropathy (Acute) Lymphadenopathy, cervical (Acute) SOB (shortness of breath) (Acute) Acute bronchitis (Acute) Plan of Treatment: Continue with present treatment and follow up plan. Pt is to keep follow up appointment as instructed and take medications as ordered. Discharge Medications Discharge Medications: No Known Drug Allergies Allergy (Verified 08/01/20 12:44) CONTINUE taking the following medications furosemide 40 mg PO QAM 08/15/20 [History] potassium chloride 10 meq PO DAILY 08/15/20 [History] New Prescriptions albuterol sulfate 2 puff INHALATION Q4-6H PRN #6.7 g 08/16/20 [Rx] albuterol sulfate 2.5 mg INHALATION QID PRN #15 ml 08/16/20 [Rx] azithromycin 250 mg PO DAILY 4 Days #4 tab 08/16/20 [Rx] insulin aspart U-100 [Novolog Flexpen U-100 Insulin] 5 - 10 unit SUBCUT TID #0 ml 08/16/20 [Rx] nebulizers #1 ea 08/16/20 [Rx] Discharge Plan Discharge Plan Patient Disposition: 01 HOME, SELF-CARE Condition: Stable Health Concerns: Post Hospitalization: new medications and changes needed to prevent readmission or further decline. Pt educated and given instructions on all concerns. Plan of Treatment: Continue with present treatment and follow up plan. Pt is to keep follow up appointment as instructed and take medications as ordered. Prescriptions: New azithromycin 250 mg tablet 250 mg PO DAILY 4 Days Qty: 4 RF: 0 albuterol sulfate 90 mcg/actuation HFA aerosol inhaler 2 puff inhalation Q4-6H PRN (Reason: shortness of breath or wheezing) Qty: 6.7 RF: 1 albuterol sulfate 2.5 mg /3 mL (0.083 %) solution for nebulization 2.5 mg inhalation QID PRN (Reason: shortness of breath or wheezing) Qty: 15 RF: 1 (DME) nebulizers Misc See Rx Instructions .ROUTE .MEDSUPPLY Qty: 1 RF: 0 Continued carvedilol [Coreg] 25 mg tablet 25 mg PO BID RF: 0 hydralazine 100 mg tablet 100 mg PO BID RF: 0 Entresto 97-103 mg tablet 1 tab PO BID RF: 0 Soliqua 100/33 100 unit-33 mcg/mL insulin pen 20 unit SUBCUT DAILY Qty: 0 RF: 0 furosemide 40 mg Tablet 40 mg PO QAM RF: 0 potassium chloride 10 mEq Capsule, Extended Release 10 meq PO DAILY RF: 0 Changed insulin aspart U-100 [Novolog Flexpen U-100 Insulin] 100 unit/mL (3 mL) insulin pen 5 - 10 unit SUBCUT TID Qty: 0 RF: 0 Follow ups/Referrals Follow ups/Referrals: BERENICE HADLEY [Primary Care Provider] - 3 DAYS Instructions Activity Restrictions/Additional Instructions: Follow with primary care as scheduled in 3 days , needs to be referred to pbx supervisor for further management of chronic heart failure. Stand Alone Forms: Excuse From Work or School, Precautions for COVID19, Patient Portal, Social Distancing
[2020-08-16] MEDS: NS 1000 ML 1,000 ML IV SCH (17:15)
[2020-08-16] MEDS: SNACK - Diabetic Appropriate PO SCH (20:35)
[2020-08-17] MEDS: DUONEB 0.5 MG/3 MG (3 mL) NEB SCH ×6 (00:36→21:05)
[2020-08-17] MEDS: ROBITUSSIN DM PO PRN (04:14)
[2020-08-17] MEDS: HumuLIN R SUBCUT PRN ×4 (06:01→20:03)
[2020-08-17 06:07] LABS: BASOPHILS # (AUTO) 0.1 X10^3/uL (0.0-0.1); BASOPHILS % (AUTO) 1.5 % (0.2-1.0); EOSINOPHILS # (AUTO) 0.2 x10^3/uL (0.0-0.2); EOSINOPHILS % (AUTO) 2.5 % (0.9-2.9); HEMATOCRIT 31.1 % (42.0-54.0); HEMOGLOBIN 10.2 g/dL (13.5-18.0); LYMPHOCYTES # (AUTO) 1.8 X10^3/uL (1.3-2.9); LYMPHOCYTES % (AUTO) 27.1 % (21.0-51.0); MEAN CORPUSCULAR HEMOGLOBIN 26.4 pg (27.0-34.0); MEAN CORPUSCULAR HGB CONC 32.7 g/dL (33.0-35.0); MEAN CORPUSCULAR VOLUME 80.8 fL (80.0-100.0); MEAN PLATELET VOLUME 7.5 fL (7.4-11.0); MONOCYTES # (AUTO) 0.4 x10^3/uL (0.3-0.8); MONOCYTES % (AUTO) 5.8 % (0.0-13.0); NEUTROPHILS # (AUTO) 4.1 x10^3/uL (2.2-4.8); NEUTROPHILS % (AUTO) 63.1 % (42.0-75.0); PLATELET COUNT 202 X10^3/uL (150.0-450.0); RED BLOOD COUNT 3.85 X10^6/uL (4.7-6.0); RED CELL DISTRIBUTION WIDTH 14.3 % (11.6-16.5); WHITE BLOOD COUNT 6.6 X10^3/uL (3.6-10.0)
[2020-08-17 06:20] LABS: ALANINE AMINOTRANSFERASE 18 Units/L (12-78); ALBUMIN 2.6 g/dL (3.4-5.0); ALKALINE PHOSPHATASE 97 Units/L (46-116); ASPARTATE AMINO TRANSFERASE 17 Units/L (15-37); BLOOD UREA NITROGEN 13 mg/dL (7-18); CHLORIDE 103 mmol/L (98-107); COR CA(FOR HYPOALB) 10.1 mg/dL (8.5-10.1); COR NA(FOR HYPERGLY) 141 mmol/L (136-145); CREATININE 1.26 mg/dL (0.70-1.30); SODIUM 138 mmol/L (136-145); TOTAL PROTEIN 7.8 g/dL (6.4-8.2); eGFR NON BLACK RACES > 60 (>60)
[2020-08-17] MEDS ORDERED: ZITHROMAX INJ 500 MG VIAL IV ONE (08:51)
[2020-08-17] MEDS ORDERED: NS 250 ML IV 0 ML IV ONE (08:52)
--- NOTE | 2020-08-17 09:05 | PCM.PROG ---
Progress Note Progress Note for Day of Date of Exam: 08/16/20 Subjective Subjective: Patient seen at bedside, reports feeling better. He is currently on room air and states breathing has improved. He states he feels SOB with exertion but it's a lot better now. His leg swelling has improved. He still has mild productive cough.ECHO showed EF 29%, last one was 33% with severe decrease is global wall motion. Moderate pulmonary HTN and dilated IVC. CT PE was negative for PE but did show b/l ground glass opacities concerning for pneumonia. Labs: Hgb 10.4 K: 3.6 BUN/Cr: 14/1.34 Glucose 196 Plan: continue IV Lasix, continue azithromycin. Will ask RT to walk patient and evaluate for oxygen needs. Continue duonebs. Past Medical Family Social History Past Med/Fam/Surg Hx: No changes since H&P Allergies: Allergies No Known Drug Allergies Allergy (Verified 08/01/20 12:44) Review of Systems ROS: No change since H&P Vital Signs and I&O's Vital Signs: Temperature 98.4 F Pulse Rate [Left Brachial] 87 Pulse Rate 81 Respiratory Rate 18 Blood Pressure [Right Arm] 171/102 Blood Pressure [Left Arm] 145/90 Blood Pressure 143/86 O2 Sat by Pulse Oximetry 96 Intake and Output: Intake & Output 08/14/20 08/15/20 08/16/20 08/17/20 23:59 23:59 23:59 23:59 Intake Total 160 / 160 760 / 760 3792 / 3792 380 / 380 Output Total 1450 / 1450 950 / 950 3100 / 3100 600 / 600 Balance -1290 / -1290 -190 / -190 692 / 692 -220 / -220 Physical Exam Oriented: Normal Eyes: Normal Ear: Normal Nose: Normal Throat: Normal Respiratory: Normal Cardiovascular: Normal and Edema Auscultation: Bowel Sounds: Normal Tenderness: Normal Skin: Normal Musculoskeletal: Normal Psychiatric: Normal Mood Description: Calm Affect: Normal Speech Pattern: Clear and Appropriate Laboratory and Diagnostics Result Diagrams: 08/17/20 05:52 08/17/20 05:52 Labs: 08/15/20 21:40 Urine,Clean Catch Urine Culture - Preliminary 08/15/20 13:12 Blood Blood Culture - Preliminary 08/15/20 13:00 Blood Blood Culture - Preliminary 08/14/20 17:41 Sputum - Expectorated Sputum Sputum Culture - Final 08/14/20 17:41 Sputum - Expectorated Sputum - Final Laboratory WBC 6.6 X10^3/uL (3.6-10.0) 08/17/20 05:52 RBC 3.85 X10^6/uL (4.7-6.0) L 08/17/20 05:52 Hgb 10.2 g/dL (13.5-18.0) L 08/17/20 05:52 Hct 31.1 % (42.0-54.0) L 08/17/20 05:52 MCV 80.8 fL (80.0-100.0) 08/17/20 05:52 MCH 26.4 pg (27.0-34.0) L 08/17/20 05:52 MCHC 32.7 g/dL (33.0-35.0) L 08/17/20 05:52 RDW 14.3 % (11.6-16.5) 08/17/20 05:52 Plt Count 202 X10^3/uL (150.0-450.0) 08/17/20 05:52 MPV 7.5 fL (7.4-11.0) 08/17/20 05:52 Neut % (Auto) 63.1 % (42.0-75.0) 08/17/20 05:52 Lymph % (Auto) 27.1 % (21.0-51.0) 08/17/20 05:52 [place] % (Auto) 5.8 % (0.0-13.0) 08/17/20 05:52 Eos % (Auto) 2.5 % (0.9-2.9) 08/17/20 05:52 Baso % (Auto) 1.5 % (0.2-1.0) H 08/17/20 05:52 Neut # (Auto) 4.1 x10^3/uL (2.2-4.8) 08/17/20 05:52 Lymph # (Auto) 1.8 X10^3/uL (1.3-2.9) 08/17/20 05:52 [place] # (Auto) 0.4 x10^3/uL (0.3-0.8) 08/17/20 05:52 Eos # (Auto) 0.2 x10^3/uL (0.0-0.2) 08/17/20 05:52 Baso # (Auto) 0.1 X10^3/uL (0.0-0.1) 08/17/20 05:52 Absolute Nucleated RBC 0.0 /100WBC 08/17/20 05:52 D-Dimer 1.41 ug/ml (0.0-0.57) H* 08/14/20 16:17 Sodium 138 mmol/L (136-145) 08/17/20 05:52 Corrected Sodium 141 mmol/L (136-145) 08/17/20 05:52 Potassium 3.8 mmol/L (3.5-5.1) 08/17/20 05:52 Chloride 103 mmol/L (98-107) 08/17/20 05:52 Carbon Dioxide 26.0 mmol/L (21-32) 08/17/20 05:52 BUN 13 mg/dL (7-18) 08/17/20 05:52 Creatinine 1.26 mg/dL (0.70-1.30) 08/17/20 05:52 Est GFR (MDRD) Af Amer > 60 (>60) 08/17/20 05:52 Est GFR (MDRD) Non-Af > 60 (>60) 08/17/20 05:52 Glucose 205 mg/dL (65-99) H 08/17/20 05:52 POC Glucose (mg/dL) 190 mg/dL (65-99) H 08/17/20 05:20 Calcium 9.0 mg/dL (8.5-10.1) 08/17/20 05:52 Corrected Calcium 10.1 mg/dL (8.5-10.1) 08/17/20 05:52 Magnesium 1.9 mg/dL (1.7-2.9) 08/16/20 05:21 Iron 111 ug/dL (50-175) 08/15/20 12:46 Transferrin 247 mg/dL (202-364) 08/15/20 12:46 Ferritin 102 ng/mL (26-388) 08/15/20 12:46 Total Bilirubin 0.40 mg/dL (0.2-1.0) 08/17/20 05:52 AST 17 Units/L (15-37) 08/17/20 05:52 ALT 18 Units/L (12-78) 08/17/20 05:52 Alkaline Phosphatase 97 Units/L (46-116) 08/17/20 05:52 Creatine Kinase 44 Units/L (39-308) 08/14/20 16:17 CK-MB (CK-2) < 1.0 ng/mL (0-4.0) 08/14/20 16:17 CK/CKMB % Calc 2.3 % (<4) 08/14/20 16:17 Troponin I 0.02 ng/mL (0-1.5) 08/14/20 16:17 Total Protein 7.8 g/dL (6.4-8.2) 08/17/20 05:52 Albumin 2.6 g/dL (3.4-5.0) L 08/17/20 05:52 Globulin 5.2 g/dL (2.5-4.5) H 08/17/20 05:52 Albumin/Globulin Ratio 0.5 Ratio (1.1-2.1) L 08/17/20 05:52 Vitamin B12 887 pg/mL (193-986) 08/15/20 12:46 Folate 16.0 ng/mL (>8.6) 08/15/20 12:46 Specimen Type Clean catch urine 08/14/20 16:45 Urine Color Dark yellow (YELLOW) 08/14/20 16:45 Urine Appearance Clear (CLEAR) 08/14/20 16:45 Urine pH 5.0 (5.0 - 8.0) 08/14/20 16:45 Ur Specific [place] 1.020 (1.000-1.030) 08/14/20 16:45 Urine Protein 4+ (NEGATIVE) 08/14/20 16:45 Urine Glucose (UA) Negative (NEGATIVE) 08/14/20 16:45 Urine Ketones Negative (NEGATIVE) 08/14/20 16:45 Urine Occult Blood 1+ (NEGATIVE) 08/14/20 16:45 Urine Nitrite Negative (NEGATIVE) 08/14/20 16:45 Urine Bilirubin Negative (NEGATIVE) 08/14/20 16:45 Urine Urobilinogen Normal (NORMAL) 08/14/20 16:45 Ur Leukocyte Esterase Negative (NEGATIVE) 08/14/20 16:45 Urine RBC 5-10 /HPF (0-3) A 08/14/20 16:45 Urine WBC None seen /HPF (0-5) 08/14/20 16:45 Ur Squamous Epith Cells Few /HPF (NEGATIVE) 08/14/20 16:45 Amorphous Sediment 1+ /HPF (NEGATIVE) 08/14/20 16:45 Urine Bacteria Trace /HPF (NEGATIVE) 08/14/20 16:45 Ur Culture Indicated? No/not indicated 08/14/20 16:45 Stool Description 15g brn,semiformed 08/16/20 09:17 Stl Occult Blood (IFOB) Negative (NEGATIVE) 08/16/20 09:17 SARS-CoV-2 (PCR) Negative (NEGATIVE) 08/14/20 18:25 Plan (1) Pneumonia: Status: Acute Qualifiers: Laterality: bilateral Lung location: unspecified part of lung Pneumonia type: due to unspecified organism Qualified Code(s): J18.9 - Pneumonia, unspecified organism (2) Dilated cardiomyopathy: Status: Acute (3) SOB (shortness of breath): Status: Acute Plan: ADMIT, CE ON ADMISSION CXR, STRICT I&OS EKG, OBTAIN LAST ECHO RESULTS, CONTINUE SSI IV ATBX, BLOOD CULTURES, RESP CONSULT D-DIMER, CONTINUE PO ELIQUIS (4) Acute bronchitis: Status: Acute (5) Hypertensive urgency: Status: Acute (6) CHF (congestive heart failure): Status: Acute (7) Diabetes: Status: Acute Qualifiers: Diabetes mellitus complication status: without complication Diabetes mellitus fci insulin use: without fci use Diabetes mellitus type: type 2 Qualified Code(s): E11.9 - Type 2 diabetes mellitus without complications (8) Moderate to severe pulmonary hypertension: Status: Acute (9) Acute on chronic renal failure: Status: Acute
[2020-08-17] MEDS: COREG TAB 25 MG PO SCH ×2 (09:31→20:02)
[2020-08-17] MEDS: APRESOLINE TAB 25 MG PO SCH ×2 (09:31→20:02)
[2020-08-17] MEDS: LASIX IVP SCH ×2 (09:32→17:02)
[2020-08-17] MEDS: PROTONIX INJ 40 MG VIAL IVP SCH ×2 (09:32→20:02)
[2020-08-17] MEDS: [UNRECOGNIZED DRUG - OTHER] SUBCUT SCH (09:38)
[2020-08-17] MEDS: INSULIN GLARGINE LIXISENATIDE SUBCUT SCH (09:38)
[2020-08-17] MEDS ORDERED: ROCEPHIN VIAL 1 GRAM ONE (09:40)
[2020-08-17] MEDS ORDERED: NS 100 ML IV + SPIKE MINIBAG* 100 ML IV ONE (09:41)
[2020-08-17] MEDS: ROCEPHIN VIAL 1 GRAM 1 G in NS 100 ML IV + SPIKE MINIBAG* 100 ML IV SCH (09:43)
[2020-08-17] MEDS ORDERED: APRESOLINE TAB 25 MG ONE (10:07)
--- NOTE | 2020-08-17 10:33 | PCM.PROG ---
Progress Note Progress Note for Day of Date of Exam: 08/17/20 Subjective Subjective: Patient seen at bedside, reports doing ok. He states he was coughing a lot last night. He states his bed does not come up and he is not able to sleep flat. He did walk with RT and his sats dropped to 87% on RA but then came up with rest. He was not placed on oxygen. He did have an episode of Vtach last night. He state he was talking to his friend on the phone when it happened. He denied chest pain or SOB. He said it felt like anxiety. His BP then was elevated 190/115. He was given his hydralazine dose early and it came down. EKG showed LBBB, prolonged QTC. Labs: Hgb 10.2 K: 3.8 BUN/Cr: 13/1.26 Glucose 205 Plan: continue IV Lasix, will switch to Rocephin due to prolonged QTC. Repeat EKG and CXR today. Continue duonebs. Check Mag. Monitor am labs. Past Medical Family Social History Past Med/Fam/Surg Hx: No changes since H&P Allergies: Allergies No Known Drug Allergies Allergy (Verified 08/01/20 12:44) Review of Systems ROS: No change since H&P Vital Signs and I&O's Vital Signs: Temperature 98.4 F Pulse Rate [Left Brachial] 87 Pulse Rate 86 Respiratory Rate 18 Blood Pressure [Right Arm] 171/102 Blood Pressure [Left Arm] 145/90 Blood Pressure 143/86 O2 Sat by Pulse Oximetry 94 Intake and Output: Intake & Output 08/14/20 08/15/20 08/16/20 08/17/20 23:59 23:59 23:59 23:59 Intake Total 160 / 160 760 / 760 3792 / 3792 380 / 380 Output Total 1450 / 1450 950 / 950 3100 / 3100 600 / 600 Balance -1290 / -1290 -190 / -190 692 / 692 -220 / -220 Physical Exam Oriented: Normal Eyes: Normal Ear: Normal Nose: Normal Throat: Normal Respiratory: Normal Cardiovascular: Normal and Edema (improved ) Auscultation: Bowel Sounds: Normal Tenderness: Normal Skin: Normal Musculoskeletal: Normal Psychiatric: Normal Mood Description: Calm Affect: Normal Speech Pattern: Clear and Appropriate Laboratory and Diagnostics Result Diagrams: 08/17/20 05:52 08/17/20 05:52 Labs: 08/15/20 21:40 Urine,Clean Catch Urine Culture - Preliminary 08/15/20 13:12 Blood Blood Culture - Preliminary 08/15/20 13:00 Blood Blood Culture - Preliminary 08/14/20 17:41 Sputum - Expectorated Sputum Sputum Culture - Final 08/14/20 17:41 Sputum - Expectorated Sputum - Final Laboratory WBC 6.6 X10^3/uL (3.6-10.0) 08/17/20 05:52 RBC 3.85 X10^6/uL (4.7-6.0) L 08/17/20 05:52 Hgb 10.2 g/dL (13.5-18.0) L 08/17/20 05:52 Hct 31.1 % (42.0-54.0) L 08/17/20 05:52 MCV 80.8 fL (80.0-100.0) 08/17/20 05:52 MCH 26.4 pg (27.0-34.0) L 08/17/20 05:52 MCHC 32.7 g/dL (33.0-35.0) L 08/17/20 05:52 RDW 14.3 % (11.6-16.5) 08/17/20 05:52 Plt Count 202 X10^3/uL (150.0-450.0) 08/17/20 05:52 MPV 7.5 fL (7.4-11.0) 08/17/20 05:52 Neut % (Auto) 63.1 % (42.0-75.0) 08/17/20 05:52 Lymph % (Auto) 27.1 % (21.0-51.0) 08/17/20 05:52 [place] % (Auto) 5.8 % (0.0-13.0) 08/17/20 05:52 Eos % (Auto) 2.5 % (0.9-2.9) 08/17/20 05:52 Baso % (Auto) 1.5 % (0.2-1.0) H 08/17/20 05:52 Neut # (Auto) 4.1 x10^3/uL (2.2-4.8) 08/17/20 05:52 Lymph # (Auto) 1.8 X10^3/uL (1.3-2.9) 08/17/20 05:52 [place] # (Auto) 0.4 x10^3/uL (0.3-0.8) 08/17/20 05:52 Eos # (Auto) 0.2 x10^3/uL (0.0-0.2) 08/17/20 05:52 Baso # (Auto) 0.1 X10^3/uL (0.0-0.1) 08/17/20 05:52 Absolute Nucleated RBC 0.0 /100WBC 08/17/20 05:52 D-Dimer 1.41 ug/ml (0.0-0.57) H* 08/14/20 16:17 Sodium 138 mmol/L (136-145) 08/17/20 05:52 Corrected Sodium 141 mmol/L (136-145) 08/17/20 05:52 Potassium 3.8 mmol/L (3.5-5.1) 08/17/20 05:52 Chloride 103 mmol/L (98-107) 08/17/20 05:52 Carbon Dioxide 26.0 mmol/L (21-32) 08/17/20 05:52 BUN 13 mg/dL (7-18) 08/17/20 05:52 Creatinine 1.26 mg/dL (0.70-1.30) 08/17/20 05:52 Est GFR (MDRD) Af Amer > 60 (>60) 08/17/20 05:52 Est GFR (MDRD) Non-Af > 60 (>60) 08/17/20 05:52 Glucose 205 mg/dL (65-99) H 08/17/20 05:52 POC Glucose (mg/dL) 190 mg/dL (65-99) H 08/17/20 05:20 Calcium 9.0 mg/dL (8.5-10.1) 08/17/20 05:52 Corrected Calcium 10.1 mg/dL (8.5-10.1) 08/17/20 05:52 Magnesium 1.8 mg/dL (1.7-2.9) 08/17/20 05:25 Iron 111 ug/dL (50-175) 08/15/20 12:46 Transferrin 247 mg/dL (202-364) 08/15/20 12:46 Ferritin 102 ng/mL (26-388) 08/15/20 12:46 Total Bilirubin 0.40 mg/dL (0.2-1.0) 08/17/20 05:52 AST 17 Units/L (15-37) 08/17/20 05:52 ALT 18 Units/L (12-78) 08/17/20 05:52 Alkaline Phosphatase 97 Units/L (46-116) 08/17/20 05:52 Creatine Kinase 44 Units/L (39-308) 08/14/20 16:17 CK-MB (CK-2) < 1.0 ng/mL (0-4.0) 08/14/20 16:17 CK/CKMB % Calc 2.3 % (<4) 08/14/20 16:17 Troponin I 0.02 ng/mL (0-1.5) 08/14/20 16:17 Total Protein 7.8 g/dL (6.4-8.2) 08/17/20 05:52 Albumin 2.6 g/dL (3.4-5.0) L 08/17/20 05:52 Globulin 5.2 g/dL (2.5-4.5) H 08/17/20 05:52 Albumin/Globulin Ratio 0.5 Ratio (1.1-2.1) L 08/17/20 05:52 Vitamin B12 887 pg/mL (193-986) 08/15/20 12:46 Folate 16.0 ng/mL (>8.6) 08/15/20 12:46 Specimen Type Clean catch urine 08/14/20 16:45 Urine Color Dark yellow (YELLOW) 08/14/20 16:45 Urine Appearance Clear (CLEAR) 08/14/20 16:45 Urine pH 5.0 (5.0 - 8.0) 08/14/20 16:45 Ur Specific [place] 1.020 (1.000-1.030) 08/14/20 16:45 Urine Protein 4+ (NEGATIVE) 08/14/20 16:45 Urine Glucose (UA) Negative (NEGATIVE) 08/14/20 16:45 Urine Ketones Negative (NEGATIVE) 08/14/20 16:45 Urine Occult Blood 1+ (NEGATIVE) 08/14/20 16:45 Urine Nitrite Negative (NEGATIVE) 08/14/20 16:45 Urine Bilirubin Negative (NEGATIVE) 08/14/20 16:45 Urine Urobilinogen Normal (NORMAL) 08/14/20 16:45 Ur Leukocyte Esterase Negative (NEGATIVE) 08/14/20 16:45 Urine RBC 5-10 /HPF (0-3) A 08/14/20 16:45 Urine WBC None seen /HPF (0-5) 08/14/20 16:45 Ur Squamous Epith Cells Few /HPF (NEGATIVE) 08/14/20 16:45 Amorphous Sediment 1+ /HPF (NEGATIVE) 08/14/20 16:45 Urine Bacteria Trace /HPF (NEGATIVE) 08/14/20 16:45 Ur Culture Indicated? No/not indicated 08/14/20 16:45 Stool Description 15g brn,semiformed 08/16/20 09:17 Stl Occult Blood (IFOB) Negative (NEGATIVE) 08/16/20 09:17 SARS-CoV-2 (PCR) Negative (NEGATIVE) 08/14/20 18:25 Plan (1) Pneumonia: Status: Acute Qualifiers: Laterality: bilateral Lung location: unspecified part of lung Pneumonia type: due to unspecified organism Qualified Code(s): J18.9 - Pneumo crystal, unspecified organism (2) Dilated cardiomyopathy: Status: Acute (3) SOB (shortness of breath): Status: Acute Plan: ADMIT, CE ON ADMISSION CXR, STRICT I&OS EKG, OBTAIN LAST ECHO RESULTS, CONTINUE SSI IV ATBX, BLOOD CULTURES, RESP CONSULT D-DIMER, CONTINUE PO ELIQUIS (4) Acute bronchitis: Status: Acute (5) Hypertensive urgency: Status: Acute (6) CHF (congestive heart failure): Status: Acute (7) Diabetes: Status: Acute Qualifiers: Diabetes mellitus complication status: without complication Diabetes mellitus intermediate teacher insulin use: without residential use Diabetes mellitus type: type 2 Qualified Code(s): E11.9 - Type 2 diabetes mellitus without complications (8) Moderate to severe pulmonary hypertension: Status: Acute (9) Acute on chronic renal failure: Status: Acute
--- NOTE | 2020-08-17 12:03 | RAD ---
CHEST, 1 VIEWHISTORY: hypoxia pulmonary edemaStudy: Single view of the chest.Comparison:NoneFindings:Cardiomegaly and pulmonary edema centrally.No focal consolidations, pleural effusions or pneumothorax. Osseous structures demonstrate no acute abnormality.IMPRESSION:1. Cardiomegaly and centralized pulmonary edema.Electronically signed by: NIRANJAN JIMENEZ (Aug 17, 2020 12:01:28)
[2020-08-17] MEDS: SNACK - Diabetic Appropriate PO SCH (20:01)
[2020-08-18] MEDS: DUONEB 0.5 MG/3 MG (3 mL) NEB SCH ×3 (00:15→09:32)
[2020-08-18] MEDS: HumuLIN R SUBCUT PRN (05:40)
[2020-08-18 05:56] LABS: BASOPHILS # (AUTO) 0.1 X10^3/uL (0.0-0.1); EOSINOPHILS # (AUTO) 0.2 x10^3/uL (0.0-0.2); EOSINOPHILS % (AUTO) 2.2 % (0.9-2.9); HEMATOCRIT 34.3 % (42.0-54.0); HEMOGLOBIN 11.5 g/dL (13.5-18.0); LYMPHOCYTES # (AUTO) 1.6 X10^3/uL (1.3-2.9); MEAN CORPUSCULAR HEMOGLOBIN 26.6 pg (27.0-34.0); MEAN CORPUSCULAR HGB CONC 33.5 g/dL (33.0-35.0); MEAN CORPUSCULAR VOLUME 79.6 fL (80.0-100.0); MEAN PLATELET VOLUME 7.6 fL (7.4-11.0); MONOCYTES # (AUTO) 0.4 x10^3/uL (0.3-0.8); MONOCYTES % (AUTO) 6.2 % (0.0-13.0); NEUTROPHILS # (AUTO) 4.9 x10^3/uL (2.2-4.8); NEUTROPHILS % (AUTO) 68.6 % (42.0-75.0); PLATELET COUNT 235 X10^3/uL (150.0-450.0); RED BLOOD COUNT 4.31 X10^6/uL (4.7-6.0); RED CELL DISTRIBUTION WIDTH 14.2 % (11.6-16.5); WHITE BLOOD COUNT 7.1 X10^3/uL (3.6-10.0)
[2020-08-18 06:08] LABS: ALANINE AMINOTRANSFERASE 23 Units/L (12-78); ALBUMIN 2.8 g/dL (3.4-5.0); ALKALINE PHOSPHATASE 117 Units/L (46-116); ASPARTATE AMINO TRANSFERASE 18 Units/L (15-37); BLOOD UREA NITROGEN 16 mg/dL (7-18); CALCIUM 9.3 mg/dL (8.5-10.1); CARBON DIOXIDE 29.8 mmol/L (21-32); CHLORIDE 102 mmol/L (98-107); COR CA(FOR HYPOALB) 10.3 mg/dL (8.5-10.1); COR NA(FOR HYPERGLY) 141 mmol/L (136-145); CREATININE 1.37 mg/dL (0.70-1.30); SODIUM 138 mmol/L (136-145); TOTAL PROTEIN 8.7 g/dL (6.4-8.2); eGFR NON BLACK RACES > 60 (>60)
--- NOTE | 2020-08-18 09:12 | RAD ---
HISTORYShortness of breathSTUDYChest AP [id number]/08/2020FINDINGSThe heart is enlarged. No congestive heart failure is noted. No acute alveolar infiltrates or pleural effusions are identified. Bony thorax is unremarkable.IMPRESSIONContinued cardiomegaly but without congestive heart failure on today's examinationNo definite infiltratesElectronically signed by: SARA MA (Aug 18, 2020 09:10:47)
[2020-08-18 09:23] LABS: CKMB % 2.3 % (<4); CREATINE KINASE 43 Units/L (39-308); CREATINE KINASE MB < 1.0 ng/mL (0-4.0); TROPONIN I 0.04 ng/mL (0-1.5)
[2020-08-18] MEDS: ROCEPHIN VIAL 1 GRAM 1 G in NS 100 ML IV + SPIKE MINIBAG* 100 ML IV SCH (09:42)
[2020-08-18] MEDS: LASIX IVP SCH (09:51)
[2020-08-18] MEDS: PROTONIX INJ 40 MG VIAL IVP SCH (09:52)
[2020-08-18] MEDS: APRESOLINE TAB 25 MG PO SCH (09:52)
[2020-08-18] MEDS: COREG TAB 25 MG PO SCH (09:52)
[2020-08-18] MEDS: INSULIN GLARGINE LIXISENATIDE SUBCUT SCH (10:16)
[2020-08-18] MEDS: [UNRECOGNIZED DRUG - OTHER] SUBCUT SCH (10:16)
[2020-08-18 12:08] VITALS: BP 141/100
== END 2020-08-18 15:35 | disposition home or self-care (01) | DRG 291 ==
LOC: MED/SURG
PROVIDERS: ADMIT Internal Medicine; ATTEND Internal Medicine